=== PATIENT | female | born 1965 | race Caucasian/White ===

== ENCOUNTER → 2017-06-24 | Outpatient (CLI) | payer OTHER ==
--- NOTE | 2017-06-24 16:58 | BD ---
EXAMINATION TYPE: MG DEXA axial skeleton. DATE OF EXAM: 06/24/2017 COMPARISON: 01/04/2012 CLINICAL HISTORY: 51-year-old female osteoarthritis, postmenopausal screening Height: 65 IN Weight: 179 LBS FRAX RISK QUESTIONS: Alcohol (3 or more units per day): NO Family History (Parent hip fracture): NO Glucocorticoids (More than 3mos): NO (Ex: prednisone, prednisolone, methylprednisolone, dexamethasone, and hydrocortisone). History of Fracture in Adulthood: YES RT SHOULDER/CLAVICLE/HUMERUS FX Secondary Osteoporosis: 1. Type 1 Diabetes: NO 2. Hyperthyroidism: NO 3. Menopause before 45: YES AGE 43 4. Malnutrition: NO 5. Chronic liver disease: NO Rheumatoid Arthritis: NO Current Tobacco Use: YES RISK FACTORS HISTORY OF: History of Wrist Fracture: YES RT WRIST When: AGE 26 Surgery to Wrist (right): YES When: AGE 26 Active: YES Diet low in dairy products/other sources of calcium: YES Postmenopausal woman: AGE 43 Take estrogen and/or progesterone medications: NOT NOW How long: AGE 46-47 MEDICATIONS: Additional Medications: KLONOPIN, CELEXA, NORCO, CHOLESTEROL MEDS, NIACIN, EXAM MEASUREMENTS: Bone mineral densitometry was performed using the [employer] System. Bone mineral density as measured about the Lumbar spine is: ----- L1-L4(G/cm2): 1.221 T Score Values are as follows: ----- L2: 0.5 ----- L3: 0.9 ----- L4: 0.0 ----- L1-L4: 0.3 Bone mineral density has: Decreased -2.5% since study of: 01/04/2012 Bone mineral density about the R hip (g/cm2): 0.927 Bone mineral density about the L hip (g/cm2): 0.946 T Score values are as follows: -----R Neck: -0.8 -----L Neck: -0.7 -----R Total: -0.6 -----L Total: -0.4 Bone mineral density has: Decreased -5.9% since study of: 01/04/2012 IMPRESSION: Normal (Values between +1 and -1 indicate normal bone mass). Consider repeating this study in 5 year s or sooner if there is some new clinical indication. NOTE: T-SCORE=SD OF THE YOUNG ADULT MEAN.
--- NOTE | 2017-06-25 10:10 | MM ---
Reason for exam: screening (asymptomatic). Last mammogram was performed 5 years and 6 months ago. History: Patient is postmenopausal. Took estrogen for 1 year 1 month beginning at age 46. Took progesterone for 1 year 1 month beginning at age 46. Physical Findings: A clinical breast exam by your physician is recommended on an annual basis and results should be correlated with mammographic findings. MG Screening Mammo w CAD Bilateral CC and MLO view(s) were taken. Prior study comparison: January 04, 2012, bilateral digital screening mammo w/CAD. January 29, 2008, mammogram, performed at [facility]. There are scattered fibroglandular densities. There is no discrete abnormality. No significant changes when compared with prior studies. ASSESSMENT: Negative, BI-RAD 1 RECOMMENDATION: Routine screening mammogram of both breasts in 1 year.
== END | disposition home or self-care (01) ==
LOC: RADMAMWWP 14:04
PROVIDERS: ATTEND Family Medicine
DX: Z12.31 Encounter for screening mammogram for malignant neoplasm of breast (principal); M19.90 Unspecified osteoarthritis, unspecified site
CPT/HCPCS: 77080; G0202

== ENCOUNTER 2017-12-16 12:35 | Emergency (ER) | payer OTHER ==
[2017-12-16] MEDS ORDERED: SODIUM CHLORIDE 0.9% 1,000 ML IV STA ×2 (13:01)
[2017-12-16] MEDS ORDERED: MORPHINE SULFATE 5 MG/ML SYRINGE IV STA (13:01)
[2017-12-16] MEDS ORDERED: KETOROLAC 30 MG/ML 1 ML VIAL IVP STA (13:01)
[2017-12-16] MEDS ORDERED: diphenhydrAMINE 50 MG/ML 1 ML VIAL IVP STA (13:01)
[2017-12-16] MEDS ORDERED: ONDANSETRON 4 MG/2 ML VIAL IVP STA (13:01)
[2017-12-16] MEDS ORDERED: FAMOTIDINE 20 MG/2 ML VIAL IV STA (13:02)
[2017-12-16] MEDS ORDERED: methylPREDNISolone SOD SUCCI 125 MG/2 ML VIAL IV STA (13:02)
--- NOTE | 2017-12-16 13:05 | ED ---
Abdominal Pain HPI - General Chief Complaint: Abdominal Pain Stated Complaint: Abd Pain Time Seen by Provider: 12/16/17 12:48 Source: patient, family, RN notes reviewed, old records reviewed Mode of arrival: ambulatory Limitations: no limitations - History of Present Illness Initial Comments: This patient is a 32-year-old female chief complaint of severe left lower quadrant abdominal pain for the past 2 days. Patient reports that the pain started a few days prior to this but has not been that bad. She states that it started to come worse this morning when she woke up. She started to have episodes of dry heaves due to the pain. She states it's in her lower left pelvis. History of hysterectomy. She states that she has had chills but denies any fever. She reports the pain was so bad she had felt lightheaded. She reports no chest pain or shortness of breath or coughing. She reports that her father has had a history of ALLERGIC reaction to iodine. She states that she is concerned that she could possibly have this as well and wants to be premedicated. Patient reports that her pain seemed to feel somewhat better after she had a bowel movement this morning. - Related Data Home Medications Medication Instructions Recorded Confirmed Citalopram Hydrobromide [CeleXA] 20 mg PO PC-SUPPER 11/16/15 12/16/17 clonazePAM [KlonoPIN] 0.5 mg PO QID PRN 11/16/15 12/16/17 Cholecalciferol [Vitamin D3] 1,000 unit PO DAILY 12/16/17 12/16/17 Lysine 500 mg PO DAILY 12/16/17 12/16/17 Niacin 500 mg PO DAILY 12/16/17 12/16/17 Previous Rx's Medication Instructions Recorded Bisacodyl [Dulcolax] 10 mg PO ONCE #20 tablet. 12/16/17 Ciprofloxacin HCl [Cipro] 500 mg PO Q12HR 10 Days tab 12/16/17 HYDROcodone/APAP 5-325MG [[place] 1 tab PO Q6HR PRN #20 tab 12/16/17 5-325] Ondansetron Odt [Zofran Odt] 4 mg PO Q12HR PRN #15 tab 12/16/17 metroNIDAZOLE [Flagyl] 500 mg PO TID #30 tab 12/16/17 Allergies Allergy/AdvReac Type Severity Reaction Status Date / Time meperidine [From Demerol] Allergy Unknown Verified 12/16/17 12:57 Review of Systems ROS Statement: Those systems with pertinent positive or pertinent negative responses have been documented in the HPI. ROS Other: All systems not noted in ROS Statement are negative. Past Medical History Past Medical History: COPD, Osteoarthritis (OA) History of Any Multi-Drug Resistant Organisms: None Reported Past Surgical History: Breast Surgery, Hysterectomy, Orthopedic Surgery, Tonsillectomy Additional Past Surgical History / Comment(s): RIGHT WRIST, RIGHT FOOT, RIGHT BREAST, Past Anesthesia/Blood Transfusion Reactions: No Reported Reaction Past Psychological History: Anxiety, Depression Smoking Status: Current every day smoker Past Alcohol Use History: None Reported Past Drug Use History: None Reported - Past Family History Mother Family Medical History: No Reported History General Exam - General Exam Comments Initial Comments: This patient is a 82-year-old female. Alert and oriented. No distress. Limitations: no limitations General appearance: alert, in no apparent distress Head exam: Present: atraumatic, normocephalic, normal inspection Eye exam: Present: normal appearance, PERRL, EOMI. Absent: scleral icterus, conjunctival injection, periorbital swelling ENT exam: Present: normal exam, mucous membranes moist Neck exam: Present: normal inspection Respiratory exam: Present: normal lung sounds bilaterally. Absent: respiratory distress, wheezes, rales, rhonchi, stridor Cardiovascular Exam: Present: regular rate, normal rhythm, normal heart sounds. Absent: systolic murmur, diastolic murmur, rubs, gallop, clicks GI/Abdominal exam: Present: soft, tenderness (Severe left lower quadrant tenderness.), normal bowel sounds. Absent: distended, guarding, rebound, rigid Back exam: Present: normal inspection Neurological exam: Present: alert, oriented X3, CN II-XII intact Psychiatric exam: Present: normal affect, normal mood Course Vital Signs 12/16/17 12/16/17 12:39 13:52 Temperature 97.8 F Pulse Rate 110 H 87 Respiratory 20 18 Rate Blood Pressure 147/78 120/78 O2 Sat by Pulse 97 99 Oximetry - Reevaluation(s) Reevaluation #1: 12/16/17 15:02 Patient is reevaluated resting comfortably in bed. She reports her pain is feeling better at this time. Medical Decision Making - Medical Decision Making 52-year-old female chief complaint of left lower quadrant abdominal pain. She reports she ate corn a few days ago. She has significant tenderness noted on exam. Patient is given IV fluids labwork obtained. She does have mild leukocytosis. White blood cell count 12,000. Urinalysis shows no infection. Liver enzymes are normal. Patient underwent CT abdomen and pelvis due to her tenderness. She has evidence of diverticulitis. No evidence of abscess or perforation. Patient informed of these results. We'll give patient Cipro and yl in the emergency department. Discussed treating the pain medicine stool softeners as well. Clear liquid diet for the next few days. Discussion is follow-up with her primary care provider. Discussed return parameters and concerns for risk for perforation and abscess. Patient understands treatment plan will comply. Return parameters were discussed. - Lab Data Result diagrams: 12/16/17 13:16 12/16/17 13:16 Lab Results 12/16/17 12/16/17 12/16/17 Range/Units 13:16 13:16 13:16 WBC 12.0 H (3.8-10.6) k/uL RBC 4.70 (3.80-5.40) m/uL Hgb 14.1 (11.4-16.0) gm/dL Hct 40.0 (34.0-46.0) % MCV 85.2 (80.0-100.0) fL MCH 30.1 (25.0-35.0) pg MCHC 35.3 (31.0-37.0) g/dL RDW 13.6 (11.5-15.5) % Plt Count 250 (150-450) k/uL Neutrophils % 82 % Lymphocytes % 12 % Monocytes % 4 % Eosinophils % 1 % Basophils % 0 % Neutrophils # 9.8 H (1.3-7.7) k/uL Lymphocytes # 1.5 (1.0-4.8) k/uL Monocytes # 0.5 (0-1.0) k/uL Eosinophils # 0.1 (0-0.7) k/uL Basophils # 0.0 (0-0.2) k/uL Sodium 143 (137-145) mmol/L Potassium 4.2 (3.5-5.1) mmol/L Chloride 105 (98-107) mmol/L Carbon Dioxide 25 (22-30) mmol/L Anion Gap 13 mmol/L BUN 15 (7-17) mg/dL Creatinine 0.80 (0.52-1.04) mg/dL Est GFR (CKD-EPI)AfAm >90 (>60 ml/min/1.73 sqM) Est GFR (CKD-EPI)NonAf 85 (>60 ml/min/1.73 sqM) Glucose 109 H (74-99) mg/dL Plasma Lactic Acid Porfirio 0.6 L (0.7-2.0) mmol/L Calcium 9.7 (8.4-10.2) mg/dL Total Bilirubin 0.6 (0.2-1.3) mg/dL AST 16 (14-36) U/L ALT 25 (9-52) U/L Alkaline Phosphatase 79 (38-126) U/L Total Protein 6.8 (6.3-8.2) g/dL Albumin 4.2 (3.5-5.0) g/dL Amylase 50 (30-110) U/L Lipase 47 (23-300) U/L Urine Color Urine Appearance (Clear) Urine pH (5.0-8.0) Ur Specific [place] (1.001-1.035) Urine Protein (Negative) Urine Glucose (UA) (Negative) Urine Ketones (Negative) Urine Blood (Negative) Urine Nitrite (Negative) Urine Bilirubin (Negative) Urine Urobilinogen (<2.0) mg/dL Ur Leukocyte Esterase (Negative) Urine RBC (0-5) /hpf Urine WBC (0-5) /hpf Ur Squamous Epith Cells (0-4) /hpf Urine Bacteria (None) /hpf Urine Mucus (None) /hpf 12/16/17 Range/Units 13:53 WBC (3.8-10.6) k/uL RBC (3.80-5.40) m/uL Hgb (11.4-16.0) gm/dL Hct (34.0-46.0) % MCV (80.0-100.0) fL MCH (25.0-35.0) pg MCHC (31.0-37.0) g/dL RDW (11.5-15.5) % Plt Count (150-450) k/uL Neutrophils % % Lymphocytes % % Monocytes % % Eosinophils % % Basophils % % Neutrophils # (1.3-7.7) k/uL Lymphocytes # (1.0-4.8) k/uL Monocytes # (0-1.0) k/uL Eosinophils # (0-0.7) k/uL Basophils # (0-0.2) k/uL Sodium (137-145) mmol/L Potassium (3.5-5.1) mmol/L Chloride (98-107) mmol/L Carbon Dioxide (22-30) mmol/L Anion Gap mmol/L BUN (7-17) mg/dL Creatinine (0.52-1.04) mg/dL Est GFR (CKD-EPI)AfAm (>60 ml/min/1.73 sqM) Est GFR (CKD-EPI)NonAf (>60 ml/min/1.73 sqM) Glucose (74-99) mg/dL Plasma Lactic Acid Porfirio (0.7-2.0) mmol/L Calcium (8.4-10.2) mg/dL Total Bilirubin (0.2-1.3) mg/dL AST (14-36) U/L ALT (9-52) U/L Alkaline Phosphatase (38-126) U/L Total Protein (6.3-8.2) g/dL Albumin (3.5-5.0) g/dL Amylase (30-110) U/L Lipase (23-300) U/L Urine Color Yellow Urine Appearance Cloudy H (Clear) Urine pH 6.0 (5.0-8.0) Ur Specific [place] 1.018 (1.001-1.035) Urine Protein Negative (Negative) Urine Glucose (UA) Negative (Negative) Urine Ketones Negative (Negative) Urine Blood Trace H (Negative) Urine Nitrite Negative (Negative) Urine Bilirubin Negative (Negative) Urine Urobilinogen <2.0 (<2.0) mg/dL Ur Leukocyte Esterase Negative (Negative) Urine RBC 1 (0-5) /hpf Urine WBC 2 (0-5) /hpf Ur Squamous Epith Cells 10 H (0-4) /hpf Urine Bacteria Rare H (None) /hpf Urine Mucus Rare H (None) /hpf - Radiology Data Radiology results: report reviewed CT shows evidence of acute diverticulitis.No evidence of pericolonic abscess or free air. Cholelithiasis without CT evidence of acute cholecystitis. Disposition Clinical Impression: Diverticulitis Disposition: HOME SELF-CARE Condition: Good Instructions: Diverticulitis (ED), Diverticulitis Diet (ED) Additional Instructions: Liquid diet for the next few days. Patient should take all medications as prescribed. Return to emergency department if any alarming signs or symptoms occur. Follow-up with primary care provider within the next 2-3 days. Prescriptions: Bisacodyl [Dulcolax] 10 mg PO ONCE #20 tablet. Ciprofloxacin HCl [Cipro] 500 mg PO Q12HR 10 Days tab HYDROcodone/APAP 5-325MG [[place] 5-325] 1 tab PO Q6HR PRN #20 tab PRN Reason: Pain metroNIDAZOLE [Flagyl] 500 mg PO TID #30 tab Ondansetron Odt [Zofran Odt] 4 mg PO Q12HR PRN #15 tab PRN Reason: Nausea Referrals: Santos Odom DO [Primary Care Provider] - 1-2 days Time of Disposition: 15:03
[2017-12-16] MEDS ORDERED: MORPHINE SULF 5MG/10ML VL ONE (13:09)
[2017-12-16 13:39] LABS: Basophils % (A) 0 %; Eosinophils # (A) 0.1 k/uL (0-0.7); Eosinophils % (A) 1 %; HGB 14.1 gm/dL (11.4-16.0); Lymphocytes # (A) 1.5 k/uL (1.0-4.8); Lymphocytes % (A) 12 %; MCH 30.1 pg (25.0-35.0); MCHC 35.3 g/dL (31.0-37.0); MCV 85.2 fL (80.0-100.0); Mean Platelet Volume 7.5; Monocytes # (A) 0.5 k/uL (0-1.0); Monocytes % (A) 4 %; Neutrophils # (A) 9.8 k/uL (1.3-7.7); Neutrophils % (A) 82 %; Platelet Count 250 k/uL (150-450); RDW 13.6 % (11.5-15.5)
[2017-12-16 13:50] LABS: ALT 25 U/L (9-52); AST 16 U/L (14-36); Albumin 4.2 g/dL (3.5-5.0); Alkaline Phosphatase 79 U/L (38-126); Amylase 50 U/L (30-110); Anion Gap 13 mmol/L; Blood Urea Nitrogen 15 mg/dL (7-17); Calcium 9.7 mg/dL (8.4-10.2); Carbon Dioxide 25 mmol/L (22-30); Chloride 105 mmol/L (98-107); Glucose 109 mg/dL (74-99); Lipase 47 U/L (23-300); Potassium 4.2 mmol/L (3.5-5.1); Sodium 143 mmol/L (137-145); Total Bilirubin 0.6 mg/dL (0.2-1.3); Total Protein 6.8 g/dL (6.3-8.2)
[2017-12-16 13:54] VITALS: PULSE 87; RESP 18
[2017-12-16 14:14] LABS: Appearance,Urine Cloudy (Clear); Bacteria,Urine Rare /hpf; Bilirubin,Urine Negative (Negative); Blood,Urine Trace (Negative); Color,Urine Yellow; Glucose,Urine (UA) Negative (Negative); Ketones,Urine Negative (Negative); Leukocyte Esterase,Urine Negative (Negative); Mucus,Urine Rare /hpf; Nitrite,Urine Negative (Negative); Protein,Urine Negative (Negative); RBC,Urine 1 /hpf (0-5); Specific Gravity,Urine 1.018 (1.001-1.035); Squamous Epithelial Cell,Urine 10 /hpf (0-4); Urobilinogen,Urine <2.0 mg/dL (<2.0); WBC,Urine 2 /hpf (0-5)
[2017-12-16] MEDS: RX INFO: IV CONTRAST WAS GIVEN 1 EACH MISC MISCELLANE PRN ×2 (14:23→14:24)
--- NOTE | 2017-12-16 14:38 | CT ---
EXAMINATION TYPE: CT abdomen pelvis w con DATE OF EXAM: 12/16/2017 HISTORY: Left lower abdominal pain CT DLP: 1490mGycm Automated Exposure Control for Dose Reduction was Utilized. CONTRAST: CT scan of the abdomen and pelvis is performed with IV Contrast, patient injected with 100 mL of Isov ue 300. COMPARISON: None. FINDINGS: LUNG BASES: Bibasilar subsegmental dependent atelectasis is present. Right middle lobe subsegmental a telectasis is also seen. LIVER/GB: Focal wedge-shaped hypoattenuation seen near the falciform ligament most commonly relates t o focal fatty infiltration. Additional 8 mm hepatic cyst is present within segment 6. Multiple lamell ated choleliths layer within the gallbladder body and neck. No common bile duct dilatation is appreci ated. PANCREAS: No ductal dilatation. SPLEEN: No splenomegaly. ADRENALS: No significant abnormality is seen. KIDNEYS: Kidneys enhance and excrete symmetrically. BOWEL: Short segment pericolonic fat stranding surrounds the sigmoid colon and numerous diverticula w ith fascial plane thickening. No evidence of free air or focal fluid collection. No proximal obstruct ion. Appendix is air-filled and within normal limits. UTERUS/ADNEXA: Uterus appears surgically absent. LYMPH NODES: No greater than 1cm abdominal or pelvic lymph nodes are appreciated. OSSEOUS STRUCTURES: Osseous structures are grossly intact with minimal multilevel degenerative change s of visualized on the lumbar spine. OTHER: Subcentimeter fat filled umbilical hernia is noted. IMPRESSION: 1. Acute uncomplicated sigmoid diverticulitis without pericolonic abscess or free air. 2. Cholelithiasis without CT evidence of acute cholecystitis.
[2017-12-16] MEDS ORDERED: CIPROFLOXACIN HCL 500 MG TAB PO STA (15:01)
[2017-12-16] MEDS ORDERED: metroNIDAZOLE 500 MG TAB PO STA (15:01)
[2017-12-16 15:29] VITALS: BP 135/87; TEMP 98.4
== END 2017-12-16 15:29 | disposition home or self-care (01) ==
LOC: EC 12:35
DX: K57.32 Diverticulitis of large intestine without perforation or abscess without bleeding (principal); F41.9 Anxiety disorder, unspecified; F32.9 Major depressive disorder, single episode, unspecified; F17.200 Nicotine dependence, unspecified, uncomplicated; Z90.710 Acquired absence of both cervix and uterus; Z79.899 Other long term (current) drug therapy; Z88.5 Allergy status to narcotic agent
CPT/HCPCS: 36415; 80053; 82150; 83605; 83690; 85025; 81001; 87040; 74177; 99285; 96374; 96375 ×5; 96361 ×2; J1200; J2930; J2405; J1885; J2274; Q9967; J2270

== ENCOUNTER 2018-07-28 13:12 | Emergency (ER) | payer OTHER ==
[2018-07-28 13:52] VITALS: RESP 18
[2018-07-28 14:41] LABS: Basophils % (A) 0 %; Eosinophils # (A) 0.1 k/uL (0-0.7); Eosinophils % (A) 1 %; HCT 44.8 % (34.0-46.0); HGB 15.3 gm/dL (11.4-16.0); Lymphocytes # (A) 2.3 k/uL (1.0-4.8); Lymphocytes % (A) 22 %; MCH 30.8 pg (25.0-35.0); MCHC 34.3 g/dL (31.0-37.0); MCV 89.9 fL (80.0-100.0); Mean Platelet Volume 7.8; Monocytes # (A) 0.4 k/uL (0-1.0); Monocytes % (A) 4 %; Neutrophils # (A) 7.3 k/uL (1.3-7.7); Neutrophils % (A) 71 %; Platelet Count 232 k/uL (150-450); RBC 4.98 m/uL (3.80-5.40); RDW 13.3 % (11.5-15.5); WBC 10.3 k/uL (3.8-10.6)
[2018-07-28] MEDS ORDERED: ONDANSETRON 4 MG/2 ML VIAL IVP STA (14:54)
[2018-07-28] MEDS ORDERED: MORPHINE SULFATE 4 MG/ML SYRINGE IV STA (14:54)
--- NOTE | 2018-07-28 14:56 | ED ---
General Adult HPI - General Chief complaint: Abdominal Pain Stated complaint: abd pain Time Seen by Provider: 07/28/18 14:36 Source: patient, RN notes reviewed Mode of arrival: ambulatory Limitations: no limitations - History of Present Illness Initial comments: Patient is a 52-year-old female presented to the emergency room today with a chief complaint of left lower quadrant pain that began 3 days ago. She does admit that it's increased last few days. Admits to history of diverticulitis and states feels similar. Patient admits to nausea. Denies any other complaints or symptoms at this time. Patient denies any recent fever, chills, shortness of breath, chest pain, back pain, numbness or tingling, dysuria or hematuria, constipation or diarrhea, headaches or visual changes, or any other complaints. - Related Data Home Medications Medication Instructions Recorded Confirmed Citalopram Hydrobromide [CeleXA] 20 mg PO PC-SUPPER 11/16/15 12/16/17 clonazePAM [KlonoPIN] 0.5 mg PO QID PRN 11/16/15 12/16/17 Cholecalciferol [Vitamin D3] 1,000 unit PO DAILY 12/16/17 12/16/17 Lysine 500 mg PO DAILY 12/16/17 12/16/17 Niacin 500 mg PO DAILY 12/16/17 12/16/17 Previous Rx's Medication Instructions Recorded Bisacodyl [Dulcolax] 10 mg PO ONCE #20 tablet. 12/16/17 Ciprofloxacin HCl [Cipro] 500 mg PO Q12HR 10 Days tab 12/16/17 HYDROcodone/APAP 5-325MG [[place] 1 tab PO Q6HR PRN #20 tab 12/16/17 5-325] Ondansetron Odt [Zofran Odt] 4 mg PO Q12HR PRN #15 tab 12/16/17 metroNIDAZOLE [Flagyl] 500 mg PO TID #30 tab 12/16/17 Ciprofloxacin HCl [Cipro] 500 mg PO Q12HR #20 day 07/28/18 metroNIDAZOLE [Flagyl] 500 mg PO TID #30 tab 07/28/18 Allergies Allergy/AdvReac Type Severity Reaction Status Date / Time meperidine [From Demerol] Allergy Unknown Verified 07/28/18 13:53 Review of Systems ROS Statement: Those systems with pertinent positive or pertinent negative responses have been documented in the HPI. ROS Other: All systems not noted in ROS Statement are negative. Past Medical History Past Medical History: COPD, Osteoarthritis (OA) History of Any Multi-Drug Resistant Organisms: None Reported Past Surgical History: Breast Surgery, Hysterectomy, Orthopedic Surgery, Tonsillectomy Additional Past Surgical History / Comment(s): RIGHT WRIST, RIGHT FOOT, RIGHT BREAST, Past Anesthesia/Blood Transfusion Reactions: No Reported Reaction Past Psychological History: Anxiety, Depression Smoking Status: Current every day smoker Past Alcohol Use History: None Reported Past Drug Use History: None Reported - Past Family History Mother Family Medical History: No Reported History General Exam - General Exam Comments Initial Comments: General: The patient is awake and alert, in no distress, and does not appear acutely ill. Eye: Pupils are equal, round and reactive to light. Extra-ocular movements are intact. No nystagmus. There is normal conjunctiva bilaterally. No signs of icterus. Ears, nose, mouth and throat: There are moist mucous membranes and no oral lesions. Neck: The neck is supple, there is no tenderness or JVD. Cardiovascular: There is a regular rate and rhythm. No murmur, rub or gallop is appreciated. Respiratory: Lungs are clear to auscultation, respirations are non-labored, breath sounds are equal. No wheezes, stridor, rales, or rhonchi. Gastrointestinal: Soft on palpation per patient does have tenderness left lower quadrant on exam. No rebound, guarding or CVA tenderness. Musculoskeletal: Normal ROM, no tenderness. Sensation intact. Strength 5/5. Pulses equal bilaterally 2+. Neurological: A&O x 3. CN II-XII intact, There are no obvious motor or sensory deficits. Coordination appears grossly intact. Speech is normal. Skin: Skin is warm and dry and no rashes or lesions are noted. Psychiatric: Cooperative, appropriate mood & affect, normal judgment. Limitations: no limitations Course Vital Signs 07/28/18 07/28/18 13:50 14:46 Temperature 98.1 F Pulse Rate 101 H 84 Respiratory 18 18 Rate Blood Pressure 126/84 135/78 O2 Sat by Pulse 97 98 Oximetry Medical Decision Making - Medical Decision Making Patient's CT reviewed and does show evidence for sigmoid diverticulitis. Patient's last been reviewed are unremarkable. Patient has no elevated white count. No fever. Vitals are stable. Abdomen soft on palpation. Patient feels comfortable with being discharged for outpatient treatment. Patient is advised follow-up the family doctor next 2 days. Will be started on Cipro, Flagyl here in the emergency room. Is advised to return if symptoms increase worsen. - Lab Data Result diagrams: 07/28/18 14:17 07/28/18 14:17 Lab Results 07/28/18 07/28/18 07/28/18 Range/Units 14:17 14:17 14:50 WBC 10.3 (3.8-10.6) k/uL RBC 4.98 (3.80-5.40) m/uL Hgb 15.3 (11.4-16.0) gm/dL Hct 44.8 (34.0-46.0) % MCV 89.9 (80.0-100.0) fL MCH 30.8 (25.0-35.0) pg MCHC 34.3 (31.0-37.0) g/dL RDW 13.3 (11.5-15.5) % Plt Count 232 (150-450) k/uL Neutrophils % 71 % Lymphocytes % 22 % Monocytes % 4 % Eosinophils % 1 % Basophils % 0 % Neutrophils # 7.3 (1.3-7.7) k/uL Lymphocytes # 2.3 (1.0-4.8) k/uL Monocytes # 0.4 (0-1.0) k/uL Eosinophils # 0.1 (0-0.7) k/uL Basophils # 0.0 (0-0.2) k/uL Sodium 141 (137-145) mmol/L Potassium 4.9 (3.5-5.1) mmol/L Chloride 104 (98-107) mmol/L Carbon Dioxide 27 (22-30) mmol/L Anion Gap 10 mmol/L BUN 11 (7-17) mg/dL Creatinine 0.75 (0.52-1.04) mg/dL Est GFR (CKD-EPI)AfAm >90 (>60 ml/min/1.73 sqM) Est GFR (CKD-EPI)NonAf >90 (>60 ml/min/1.73 sqM) Glucose 89 (74-99) mg/dL Calcium 10.0 (8.4-10.2) mg/dL Total Bilirubin 0.7 (0.2-1.3) mg/dL AST 20 (14-36) U/L ALT 25 (9-52) U/L Alkaline Phosphatase 79 (38-126) U/L Total Protein 8.0 (6.3-8.2) g/dL Albumin 4.9 (3.5-5.0) g/dL Amylase 63 (30-110) U/L Lipase 62 (23-300) U/L Urine Color Yellow Urine Appearance Clear (Clear) Urine pH 5.0 (5.0-8.0) Ur Specific [place] 1.013 (1.001-1.035) Urine Protein Negative (Negative) Urine Glucose (UA) Negative (Negative) Urine Ketones Negative (Negative) Urine Blood Trace H (Negative) Urine Nitrite Negative (Negative) Urine Bilirubin Negative (Negative) Urine Urobilinogen <2.0 (<2.0) mg/dL Ur Leukocyte Esterase Negative (Negative) Urine RBC 2 (0-5) /hpf Urine WBC 1 (0-5) /hpf Ur Squamous Epith Cells 1 (0-4) /hpf Urine Bacteria Rare H (None) /hpf Urine Mucus Rare H (None) /hpf Disposition Clinical Impression: Sigmoid diverticulitis Disposition: HOME SELF-CARE Condition: Good Instructions: Diverticulitis (ED) Additional Instructions: Please use medication as discussed. Please follow-up with family doctor in the next 2 days. Please return to emergency room if the symptoms increase or worsen or for any other concerns. Prescriptions: Ciprofloxacin HCl [Cipro] 500 mg PO Q12HR #20 day metroNIDAZOLE [Flagyl] 500 mg PO TID #30 tab Is patient prescribed a controlled substance at d/c from ED?: No Referrals: Santos Odom DO [Primary Care Provider] - 1-2 days Time of Disposition: 16:20
[2018-07-28 14:59] LABS: ALT 25 U/L (9-52); AST 20 U/L (14-36); Albumin 4.9 g/dL (3.5-5.0); Alkaline Phosphatase 79 U/L (38-126); Amylase 63 U/L (30-110); Anion Gap 10 mmol/L; Blood Urea Nitrogen 11 mg/dL (7-17); Carbon Dioxide 27 mmol/L (22-30); Chloride 104 mmol/L (98-107); Glucose 89 mg/dL (74-99); Lipase 62 U/L (23-300); Potassium 4.9 mmol/L (3.5-5.1); Sodium 141 mmol/L (137-145); Total Bilirubin 0.7 mg/dL (0.2-1.3)
--- NOTE | 2018-07-28 15:00 | XR ---
Abdomen HISTORY: Abdominal pain, left lower quadrant pain Frontal view of the abdomen submitted on 2 images Correlated to prior CT abdomen pelvis 12/16/2017 Lung bases are clear. There is no evident pneumoperitoneum or bowel obstruction. Degenerative disc ch anges are present in the visualized spine. Multiple calcifications are present within the pelvis like ly representing phleboliths. IMPRESSION: Nonobstructive bowel gas pattern.
[2018-07-28] MEDS ORDERED: diphenhydrAMINE 50 MG CAP PO STA (15:11)
[2018-07-28 15:12] LABS: Appearance,Urine Clear (Clear); Bacteria,Urine Rare /hpf; Bilirubin,Urine Negative (Negative); Blood,Urine Trace (Negative); Color,Urine Yellow; Glucose,Urine (UA) Negative (Negative); Ketones,Urine Negative (Negative); Leukocyte Esterase,Urine Negative (Negative); Mucus,Urine Rare /hpf; Nitrite,Urine Negative (Negative); Protein,Urine Negative (Negative); RBC,Urine 2 /hpf (0-5); Specific Gravity,Urine 1.013 (1.001-1.035); Squamous Epithelial Cell,Urine 1 /hpf (0-4); Urobilinogen,Urine <2.0 mg/dL (<2.0); WBC,Urine 1 /hpf (0-5)
--- NOTE | 2018-07-28 15:55 | CT ---
EXAMINATION TYPE: CT abdomen pelvis w con DATE OF EXAM: 07/28/2018 COMPARISON: 12/16/2017 INDICATION: LLQ pain, nausea DLP: 857 mGycm, Automated exposure control for dose reduction was used. CONTRAST: 100 mL of Isovue 300. Study performed without Oral Contrast TECHNIQUE: Axial images were obtained from above the diaphragm to the pubic rami in the axial plane a t 5 mm thick sections. Reconstructed images are reviewed on the computer in the coronal plane. FINDINGS: Limited CT sections are obtained the lung bases. The lung bases are clear. Very small hiatal hernia may be present. CT ABDOMEN: Liver: There is a 0.7 cm cyst measuring 14 Hounsfield units in the posterior right tip of the liver. Spleen: Normal Pancreas: Normal. Loop of bowel is pushing the mid body the pancreas upwards. Adrenal glands: The adrenal glands are normal. Gallbladder: Gallstones are present. Kidneys: No masses are evident. No hydronephrosis is present. No cysts are present. Delayed images were obtained through the kidneys, which remain unremarkable. Aorta: Vascular calcification is within the aorta. Inferior vena cava: Normal. CT PELVIS: Inflammatory changes are adjacent to the distal descending colon proximal sigmoid colon. Scattered di verticuli are within this region. Findings are compatible with acute diverticulitis. No abscess forma tion is evident. No free air is evident. Additional loops of bowel appear unremarkable. Appendix: Normal as visualized. Urinary bladder: Normal. Genitourinary structures: Uterus and ovaries are not identified. Osseous structures: No suspicious lytic or sclerotic lesions. IMPRESSIONS: 1. Acute proximal sigmoid diverticulitis. No underlying abscess formation or free air is evident thi s time.
[2018-07-28 16:37] VITALS: BP 137/90; PULSE 71; TEMP 98
== END 2018-07-28 16:32 | disposition home or self-care (01) ==
LOC: EC 13:12
DX: K57.32 Diverticulitis of large intestine without perforation or abscess without bleeding (principal); F32.9 Major depressive disorder, single episode, unspecified; F17.200 Nicotine dependence, unspecified, uncomplicated; Z79.899 Other long term (current) drug therapy; Z88.5 Allergy status to narcotic agent
CPT/HCPCS: 36415; 80053; 82150; 83690; 85025; 81001; 74018; 74177; 99284; 96374; 96375; J2270; J2405; Q9967

== ENCOUNTER → 2018-12-25 | Outpatient (CLI) | payer OTHER ==
--- NOTE | 2018-12-25 15:35 | CT ---
EXAMINATION TYPE: CT abdomen pelvis wo con DATE OF EXAM: 12/25/2018 COMPARISON: 07/28/2018 INDICATION: Generalized pain with cramping and bowel changes DLP: 742.9 mGycm, Automated exposure control for dose reduction was used. CONTRAST: 0 mL of Isovue 300. Study performed with Oral Contrast TECHNIQUE: Axial images were obtained from above the diaphragm to the pubic rami in the axial plane a t 5 mm thick sections. Reconstructed images are reviewed on the computer in the coronal plane. FINDINGS: Limited CT sections are obtained the lung bases. The lung bases are clear. CT ABDOMEN: Liver: There is an ill-defined hypodensity measuring approximately 1.3 cm at the inferior right lobe liver somewhat posteriorly. This is not a typical cyst. Consider follow-up. Spleen: Normal Pancreas: Normal Adrenal glands: Small nodules on the posterior limb of the left adrenal gland measuring 0.9 cm transv erse dimension. Right adrenal gland is normal. Gallbladder: Multiple gallstones are present. Kidneys: No masses are evident. No hydronephrosis is present. No cysts are present. No renal stone s are evident. Aorta: Vascular calcification is within the aorta. Inferior vena cava: Normal. CT PELVIS: Loops of bowel within the abdomen and pelvis are normal. There are loops of bowel which are incom pletely distended or lack oral contrast limiting their evaluation. Multiple diverticuli are within th e sigmoid colon. No acute diverticulitis is evident. Previous diverticulitis changes have resolved. Appendix: Normal as visualized. Urinary bladder: Normal. Genitourinary structures: Uterus is absent. Adnexal regions are clear. Osseous structures: No suspicious lytic or sclerotic lesions. IMPRESSIONS: 1. Cholelithiasis. 2. Very small nodular density may be in the left adrenal gland. This could be followed. 3. Ill-defined hypodensity measuring approximately 1.3 cm inferior posterior right lobe liver is of u ncertain etiology. Consider correlation with ultrasound. This area more simple appearance on the prio r examination.
== END ==
LOC: RADCTMAIN 12:07
PROVIDERS: ATTEND Family Medicine
DX: K80.20 Calculus of gallbladder without cholecystitis without obstruction (principal)
CPT/HCPCS: 74176

== ENCOUNTER → 2019-01-22 | Outpatient (CLI) | payer OTHER ==
--- NOTE | 2019-01-22 10:01 | US ---
EXAMINATION TYPE: US liver DATE OF EXAM: 01/22/2019 COMPARISON: 12/25/2018 CLINICAL HISTORY: 53-year-old female R10 ABD PAIN. TECHNIQUE: Multiple sonographic images of the right upper quadrant were obtained. FINDINGS: EXAM MEASUREMENTS: Liver Length: 15.5 cm Gallbladder Wall: 0.2 cm CBD: 0.4 cm Right Kidney: 10.2 x 4.0 x 4.6 cm Pancreas: The pancreatic tail is obscured by bowel gas shadowing. Visualized head and body show no g ross abnormal body. Liver: wnl Gallbladder: multiple mobile stones with shadowing. No abnormal gallbladder distention, wall thicken ing, or surrounding fluid. Evidence for sonographic Bolton's sign: Yes CBD: wnl Right Kidney: No hydronephrosis. IMPRESSION: 1. Cholelithiasis. No ancillary imaging findings of acute cholecystitis. However, sonographic Bolton' s sign is noted to be positive. If concern for early acute cholelithiasis, consider HIDA scan. 2. No biliary ductal dilatation.
== END | disposition home or self-care (01) ==
LOC: RADUSWWP 06:47
PROVIDERS: ATTEND Family Medicine
DX: K80.20 Calculus of gallbladder without cholecystitis without obstruction (principal)
CPT/HCPCS: 76705

== ENCOUNTER → 2019-04-21 | Outpatient (CLI) | payer OTHER ==
[2019-04-21 19:28] LABS: Gliadin AB IgA, Unit 9.2 U/mL
== END | disposition home or self-care (01) ==
LOC: LABWHC1 12:49
PROVIDERS: ATTEND Internal Medicine Gastroenterology
DX: K90.0 Celiac disease (principal)
CPT/HCPCS: 36415; 83516

== ENCOUNTER → 2019-07-14 | Outpatient (CLI) | payer OTHER ==
--- NOTE | 2019-07-15 11:55 | CT ---
EXAMINATION TYPE: CT abdomen pelvis wo/w con DATE OF EXAM: 07/14/2019 COMPARISON: 12/25/2018 INDICATION: abdominal pain and bloating DLP: 2191 mGycm, Automated exposure control for dose reduction was used. CONTRAST: 100 mL of Isovue 300. Study performed with Oral Contrast TECHNIQUE: Axial images were obtained from above the diaphragm to the pubic rami in the axial plane a t 5 mm thick sections. Reconstructed images are reviewed on the computer in the coronal plane. FINDINGS: Limited CT sections are obtained the lung bases. The lung bases are clear. CT ABDOMEN: Liver: It is a 0.8 cm cyst measuring 10 Hounsfield units in the inferior lateral right lobe liver. Spleen: Normal Pancreas: Normal Adrenal glands: The adrenal glands are normal. Gallbladder: Absent Kidneys: No masses are evident. No hydronephrosis is present. No cysts are present. No renal stone s are evident. Aorta: Vascular calcification is within the aorta. Inferior vena cava: Normal. CT PELVIS: Loops of bowel within the abdomen and pelvis are normal. There are loops of bowel which are incom pletely distended or lack oral contrast limiting their evaluation. Scattered diverticuli within the c olon. No suspicious inflammatory changes to suggest acute diverticulitis is evident. Appendix: Normal as visualized. Urinary bladder: Normal. Genitourinary structures: Uterus is not identified. Adnexal regions appear within normal limits. No f ree fluid in the pelvis. Osseous structures: No suspicious lytic or sclerotic lesions. IMPRESSIONS: 1. Diverticulosis without acute diverticulitis.
== END ==
LOC: RADCTMAIN 16:13
PROVIDERS: ATTEND Family Medicine
DX: R10.11 Right upper quadrant pain (principal); R14.0 Abdominal distension (gaseous); K57.90 Diverticulosis of intestine, part unspecified, without perforation or abscess without bleeding
CPT/HCPCS: 74178; Q9967

== ENCOUNTER → 2021-04-17 | Outpatient (CLI) | payer OTHER ==
--- NOTE | 2021-04-17 18:25 | XR ---
EXAMINATION TYPE: XR chest 2V DATE OF EXAM: 04/17/2021 COMPARISON: 01/04/2012 HISTORY: 55-year-old female shortness of breath. J44.9 F17.210 TECHNIQUE: Frontal and lateral views FINDINGS: The cardiomediastinal silhouette, aorta, and pulmonary vasculature are within normal limits. Mild int erstitial prominence has a chronic appearance. Some strandy atelectasis at the left base. Hyperinflat ion. Small Bochdalek hernia posterior left base on the lateral view. No consolidation or pleural effu sheyla. Partially visualized plate and screw fixation proximal right humerus. IMPRESSION: COPD. No acute process seen.
== END | disposition home or self-care (01) ==
LOC: RADXRMAIN 14:01
PROVIDERS: ATTEND Family Medicine
DX: J44.9 Chronic obstructive pulmonary disease, unspecified (principal)
CPT/HCPCS: 71046

== ENCOUNTER → 2022-08-02 | Outpatient (CLI) | payer OTHER ==
--- NOTE | 2022-08-02 20:03 | MR ---
EXAMINATION TYPE: MR shoulder RT wo con DATE OF EXAM: 08/02/2022 COMPARISON: None. HISTORY: Right shoulder pain, history of 2 shoulder surgeries TECHNIQUE: Multiplanar, multisequence imaging of the right shoulder is performed without contrast. FINDINGS: Extensive susceptibility artifact from metallic hardware in the right humerus makes evaluation subopt imal. No significant glenohumeral joint effusion. There is suspected resection of the distal clavicle . Rotator cuff muscle bulk is preserved. IMPRESSION: As above.
== END | disposition home or self-care (01) ==
LOC: RADMRIMAIN 14:30
PROVIDERS: ATTEND Orthopaedic Surgery Adult Reconstructive Orthopaedic Surgery
DX: M75.101 Unspecified rotator cuff tear or rupture of right shoulder, not specified as traumatic (principal)

== ENCOUNTER → 2022-10-05 | Outpatient (CLI) | payer OTHER ==
--- NOTE | 2022-10-05 13:27 | CT ---
EXAMINATION TYPE: CT shoulder RT wo/w con DATE OF EXAM: 10/05/2022 COMPARISON: 11/08/2014. MRI 08/02/2022 HISTORY: 57-year-old female M24.811 Other specified joint derangements of RT shoulder, patient compla ining of pain with lifting and rotating arm. TECHNIQUE: Contiguous axial scanning of the right shoulder performed without and with IV Contrast, pa tient injected with 70 mL of Isovue 300. Coronal/sagittal reconstructions performed. 3-D reconstructi ons generated on a dedicated independent workstation. CT DLP: 992.40 mGycm Automated exposure control for dose reduction was used. FINDINGS: Lateral plate and screw fixation across the previous comminuted proximal humeral fracture. Healing ap pears complete. Hardware shows no evident complication. There is 3 mm of step-off along the anterior to mid greater tuberosity corresponding to previous mild ly displaced fracture margin. There is some degenerative spurring along the anterior aspect of the gl enohumeral joint but overall joint space appears maintained. Slight bony contour defect along the ant erior humeral head articular surface probably due to additional healed fracture margin, axial series 28 image 35. Some possible foreshortening of the distal clavicle may reflect postsurgical change. Preserved volume of the supraspinatus and infraspinatus tendons. No atrophy of the rotator cuff muscu lature. No brent distention of the subacromial/subdeltoid bursa appreciated. Moderate to advanced underlying emphysematous changes in the visualized right hemithorax. No acute fracture, subluxation, dislocation seen. IMPRESSION: 1. LATERAL PLATE AND SCREW FIXATION ACROSS THE PREVIOUS COMMINUTED PROXIMAL HUMERAL FRACTURE. HEALING APPEARS COMPLETE. HARDWARE SHOWS NO EVIDENT COMPLICATION. 2. A 3 MM OF STEP-OFF ALONG THE ANTERIOR TO MID GREATER TUBEROSITY CORRESPONDING TO PREVIOUS MILDLY D ISPLACED FRACTURE MARGIN. CORRELATE TO IF THIS COULD POTENTIALLY BE CATCHING ON THE ACROMION DURIN G ABDUCTION. SIMILARLY, THERE IS CONTOUR IRREGULARITY ALONG THE FAR ANTERIOR HUMERAL HEAD ARTICULAR S URFACE SUGGESTING A HEALED FRACTURE MARGIN. 3. THERE IS UNDERLYING MILD OSTEOARTHRITIC CHANGE . 4. QUERY POSTSURGICAL CHANGE/BONE SHAVING TO THE DISTAL CLAVICLE.
== END | disposition home or self-care (01) ==
LOC: RADCTMAIN 08:53
PROVIDERS: ATTEND Family Medicine
DX: S42.201D Unspecified fracture of upper end of right humerus, subsequent encounter for fracture with routine healing (principal); M24.811 Other specific joint derangements of right shoulder, not elsewhere classified; M19.011 Primary osteoarthritis, right shoulder
CPT/HCPCS: 73202; Q9967

== ENCOUNTER → 2022-12-14 | Outpatient (CLI) | payer OTHER ==
--- NOTE | 2022-12-14 14:05 | XR ---
EXAMINATION TYPE: XR toes RT DATE OF EXAM: 12/14/2022 COMPARISON: NONE HISTORY: Cut injury with pain and swelling. TECHNIQUE: 3 views right first toe. FINDINGS: There is soft tissue foreign body or glass fragment seen best on oblique and lateral view m easuring 7 x 4 mm in the dorsal deep soft tissue overlying the proximal to mid diaphysis of the first proximal phalanx. No acute displaced fracture is seen. There is mild narrowing and spurring at the f irst metatarsal-phalangeal joint. IMPRESSION: As above.
== END | disposition home or self-care (01) ==
LOC: RADXRMAIN 13:22
PROVIDERS: ATTEND Family Medicine
DX: M25.871 Other specified joint disorders, right ankle and foot (principal); M25.774 Osteophyte, right foot

== ENCOUNTER 2024-06-14 09:53 | Emergency (ER) | payer MEDICARE, OTHER ==
[2024-06-14 10:01] VITALS: RESP 18
[2024-06-14] MEDS: ONDANSETRON 4 MG/2 ML VIAL IVP STA (10:59)
[2024-06-14] MEDS: SODIUM CHLORIDE 0.9% 1,000 ML IV STA (10:59)
[2024-06-14] MEDS: KETOROLAC 15 MG/ML 1 ML VIAL IVP STA (10:59)
--- NOTE | 2024-06-14 11:02 | ED ---
Abdominal Pain HPI - General Chief Complaint: Abdominal Pain Stated Complaint: Infection in intestine Time Seen by Provider: 06/14/24 11:02 Source: patient, RN notes reviewed Mode of arrival: ambulatory Limitations: no limitations - History of Present Illness Initial Comments: 58 year old female presenting to the ER with a chief complaint of abdominal pa in. Patient states yesterday she started to experience a sharp left lower quadrant abdominal pain. Pain does not radiate. She does report a history of diverticulitis and states this feels similar. She is endorsing associated nausea denies vomiting. She has not taken anything for pain at this time. Denies diarrhea/constipation, fevers, chills or urinary complaints. - Related Data Home Medications Medication Instructions Recorded Confirmed Citalopram Hydrobromide [CeleXA] 20 mg PO PC-SUPPER 11/16/15 04/27/22 Previous Rx's Medication Instructions Recorded Amoxic-Pot Clav 875-125Mg 1 tab PO Q12HR #20 tab 06/14/24 [Augmentin 875-125] Allergies Allergy/AdvReac Type Severity Reaction Status Date / Time acetaminophen Allergy Unknown Verified 06/14/24 10:01 [From Darvocet-N] meperidine [From Demerol] Allergy Unknown Verified 06/14/24 10:01 propoxyphene Allergy Unknown Verified 06/14/24 10:01 [From Darvocet-N] IV contrast Allergy Anaphylaxis Uncoded 06/14/24 10:01 Review of Systems ROS Statement: Those systems with pertinent positive or pertinent negative responses have been documented in the HPI. ROS Other: All systems not noted in ROS Statement are negative. Past Medical History Past Medical History: COPD, Osteoarthritis (OA) Additional Past Medical History / Comment(s): Diverticulitis, History of Any Multi-Drug Resistant Organisms: None Reported Past Surgical History: Breast Surgery, Hysterectomy, Orthopedic Surgery, Tonsillectomy Additional Past Surgical History / Comment(s): RIGHT WRIST, RIGHT FOOT, RIGHT BREAST, Past Anesthesia/Blood Transfusion Reactions: No Reported Reaction Past Psychological History: Anxiety, Depression Smoking Status: Current every day smoker Past Alcohol Use History: None Reported Past Drug Use History: None Reported - Past Family History Mother Family Medical History: No Reported History General Exam Limitations: no limitations General appearance: alert, in no apparent distress Respiratory exam: Present: normal lung sounds bilaterally. Absent: respiratory distress, wheezes, rales, rhonchi, stridor Cardiovascular Exam: Present: regular rate, normal rhythm, normal heart sounds. Absent: systolic murmur, diastolic murmur, rubs, gallop, clicks GI/Abdominal exam: Present: soft, tenderness (Left lower quadrant), normal bowel sounds Extremities exam: Present: normal inspection, full ROM, normal capillary refill. Absent: tenderness, pedal edema, joint swelling, calf tenderness Neurological exam: Present: alert, oriented X3, CN II-XII intact Skin exam: Present: warm, dry, intact, normal color. Absent: rash Course Vital Signs 06/14/24 09:57 Temperature 97.8 F Pulse Rate 96 Respiratory 18 Rate Blood Pressure 153/79 O2 Sat by Pulse 98 Oximetry Medical Decision Making - Medical Decision Making Was pt. sent in by a medical professional or institution (, PA, [employer], urgent care, hospital, or fdc...) When possible be specific @ -No Did you speak to anyone other than the patient for history (EMS, parent, family, police, friend...)? What history was obtained from this source @ -No Did you review nursing and triage notes (agree or disagree)? Why? @ -I reviewed and agree with nursing and triage notes Were old charts reviewed (outside hosp., previous admission, EMS record, old EKG, old radiological studies, urgent care reports/EKG's, fdc records)? Report findings @ -No old charts were reviewed Differential Diagnosis (chest pain, altered mental status, abdominal pain women, abdominal pain men, vaginal bleeding, weakness, fever, dyspnea, syncope, he adache, dizziness, GI bleed, back pain, seizure, CVA, palpatations, mental health, musculoskeletal)? @ -Differential Abdominal Pain Women:Appendicitis, Cholecystitis, diverticulosis, ischemic bowel, pancreatitis, hepatitis, UTI, gastroenteritis, AAA, incarcerated hernia, bowel obstruction, constipation, inflammatory bowel, hepatitis, peptic ulcer disease, splenic infarction, perforated viscus, v ulvitis, ovarian torsion, PID, kidney stone, placenta abruption, this is not meant to be an all-inclusive list EKG interpreted by me (3pts min.). @ -None done X-rays interpreted by me (1pt min.). @ -None done CT interpreted by me (1pt min.). @ -CT abdomen pelvis showing findings consistent with mild acute diverticulitis of the proximal sigmoid colon. No free air, free fluid, abscess or bowel o bstruction. U/S interpreted by me (1pt. min.). @ -None done What testing was considered but not performed or refused? (CT, X-rays, U/S, labs)? Why? @ -None What meds were considered but not given or refused? Why? @ -None Did you discuss the management of the patient with other professionals (prof bernadine i.e. , PA, [employer], lab, RT, psych nurse, social service assistant, communications officer, teacher, booking officer, case mgr)? Give summary @ -No Was smoking cessation discussed for >3mins.? @ -No Was critical care preformed (if so, how long)? @ -No Were there social determinants of health that impacted care today? How? (Homelessness, low income, unemployed, alcoholism, drug addiction, transportation, low edu. Level, literacy, decrease access to med. care, skilled nursing, rehab)? @ -No Was there de-escalation of care discussed even if they declined (Discuss DNR or withdrawal of care, Hospice)? DNR status @ -No What co-morbidities impacted this encounter? (DM, HTN, Smoking, COPD, CAD, Cancer, CVA, ARF, Chemo, Hep., AIDS, mental health diagnosis, sleep apnea, morbid obesity)? @ -None Was patient admitted / discharged? Hospital course, mention meds given and route, prescriptions, significant lab abnormalities, going to OR and other pertinent info. @ -Discharge. 58-year-old female presented to the ER with a chief complaint of abdominal pain. History and physical exam completed. Vitals within normal li mits. Patient in no signs of acute distress and nontoxic-appearing. Exam remarkable for exquisite left lower quadrant abdominal pain tenderness to palpation. Normal bowel sounds with no rebound or guarding. Laboratory studies obtained unremarkable. Urinalysis without evidence of dehydration or infection. CT abdomen pelvis performed showing acute mild diverticulitis of the proximal sigmoid colon. No complicating factors. Patient received symptomatic control in the ER, with improvement. Upon reevaluation, patient resting comfortably in exam room in no signs of acute distress. Results discussed with patient, all questions answered. Patient stable for discharge at this time. Augmentin prescribed. Advise close follow-up with PCP and GI, referral given. Strict return parameters discussed. Patient discharged in stable condition. Patient verbal expressed understanding agree with care plan. Case discussed with ED attending . Undiagnosed new problem with uncertain prognosis? @ -No Drug Therapy requiring intensive monitoring for toxicity (Heparin, Nitro, Insulin, Cardizem)? @ -No Were any procedures done? @ -No Diagnosis/symptom? @ -Diverticulitis Acute, or Chronic, or Acute on Chronic? @ -Acute Uncomplicated (without systemic symptoms) or Complicated (systemic symptoms)? @ -Uncomplicated Side effects of treatment? @ -No Exacerbation, Progression, or Severe Exacerbation? @ -No Poses a threat to life or bodily function? How? (Chest pain, [place], [place], pneumonia, PE, COPD, DKA, ARF, appy, cholecystitis, CVA, Diverticulitis, Homicidal, Suicidal, threat to staff... and all critical care pts) @ -Yes, diverticulitis can lead to sepsis, abscess formation and/or bowel perforation. - Lab Data Result diagrams: 06/14/24 10:54 06/14/24 10:54 Lab Results 06/14/24 06/14/24 06/14/24 Range/Units 10:54 10:54 10:54 WBC 10.4 (3.8-10.6) k/uL RBC 4.73 (3.80-5.40) m/uL Hgb 14.1 (11.4-16.0) gm/dL Hct 42.1 (34.0-46.0) % MCV 89.2 (80.0-100.0) fL MCH 29.8 (25.0-35.0) pg MCHC 33.4 (31.0-37.0) g/dL RDW 13.4 (11.5-15.5) % Plt Count 234 (150-450) k/uL MPV 8.2 Neutrophils % 81 % Lymphocytes % 12 % Monocytes % 4 % Eosinophils % 1 % Basophils % 0 % Neutrophils # 8.5 H (1.3-7.7) k/uL Lymphocytes # 1.3 (1.0-4.8) k/uL Monocytes # 0.4 (0-1.0) k/uL Eosinophils # 0.1 (0-0.7) k/uL Basophils # 0.0 (0-0.2) k/uL Sodium 139 (137-145) mmol/L Potassium 4.4 (3.5-5.1) mmol/L Chloride 105 (98-107) mmol/L Carbon Dioxide 28 (22-30) mmol/L Anion Gap 6 mmol/L BUN 14 (7-17) mg/dL Creatinine 0.80 (0.52-1.04) mg/dL Est GFR (CKD-EPI)AfAm >90 (>60 ml/min/1.73 sqM) Est GFR (CKD-EPI)NonAf 82 (>60 ml/min/1.73 sqM) Glucose 105 H (74-99) mg/dL Plasma Lactic Acid Porfirio 0.9 (0.7-2.0) mmol/L Calcium 9.3 (8.4-10.2) mg/dL Total Bilirubin 0.8 (0.2-1.3) mg/dL AST 20 (14-36) U/L ALT 20 (4-34) U/L Alkaline Phosphatase 78 (38-126) U/L Total Protein 6.8 (6.3-8.2) g/dL Albumin 4.4 (3.5-5.0) g/dL Amylase 50 (30-110) U/L Lipase 55 (23-300) U/L Urine Color Urine Appearance (Clear) Urine pH (5.0-8.0) Ur Specific Sandy (1.001-1.035) Urine Protein (Negative) Urine Glucose (UA) (Negative) Urine Ketones (Negative) Urine Blood (Negative) Urine Nitrite (Negative) Urine Bilirubin (Negative) Urine Urobilinogen (<2.0) mg/dL Ur Leukocyte Esterase (Negative) 06/14/24 Range/Units 11:40 WBC (3.8-10.6) k/uL RBC (3.80-5.40) m/uL Hgb (11.4-16.0) gm/dL Hct (34.0-46.0) % MCV (80.0-100.0) fL MCH (25.0-35.0) pg MCHC (31.0-37.0) g/dL RDW (11.5-15.5) % Plt Count (150-450) k/uL MPV Neutrophils % % Lymphocytes % % Monocytes % % Eosinophils % % Basophils % % Neutrophils # (1.3-7.7) k/uL Lymphocytes # (1.0-4.8) k/uL Monocytes # (0-1.0) k/uL Eosinophils # (0-0.7) k/uL Basophils # (0-0.2) k/uL Sodium (137-145) mmol/L Potassium (3.5-5.1) mmol/L Chloride (98-107) mmol/L Carbon Dioxide (22-30) mmol/L Anion Gap mmol/L BUN (7-17) mg/dL Creatinine (0.52-1.04) mg/dL Est GFR (CKD-EPI)AfAm (>60 ml/min/1.73 sqM) Est GFR (CKD-EPI)NonAf (>60 ml/min/1.73 sqM) Glucose (74-99) mg/dL Plasma Lactic Acid Porfirio (0.7-2.0) mmol/L Calcium (8.4-10.2) mg/dL Total Bilirubin (0.2-1.3) mg/dL AST (14-36) U/L ALT (4-34) U/L Alkaline Phosphatase (38-126) U/L Total Protein (6.3-8.2) g/dL Albumin (3.5-5.0) g/dL Amylase (30-110) U/L Lipase (23-300) U/L Urine Color Light Yellow Urine Appearance Clear (Clear) Urine pH 5.0 (5.0-8.0) Ur Specific Sandy 1.017 (1.001-1.035) Urine Protein Negative (Negative) Urine Glucose (UA) Negative (Negative) Urine Ketones Negative (Negative) Urine Blood Negative (Negative) Urine Nitrite Negative (Negative) Urine Bilirubin Negative (Negative) Urine Urobilinogen <2.0 (<2.0) mg/dL Ur Leukocyte Esterase Negative (Negative) - Radiology Data Radiology results: report reviewed, image reviewed Disposition Clinical Impression: Diverticulitis Disposition: HOME SELF-CARE Condition: Stable Instructions (If sedation given, give patient instructions): Diverticulitis (DC) Additional Instructions: Complete full course of Augmentin. Follow-up with PCP. Return to the ER for any new or worsening concerns. Prescriptions: Amoxic-Pot Clav 875-125Mg [Augmentin 875-125] 1 tab PO Q12HR #20 tab Is patient prescribed a controlled substance at d/c from ED?: No Referrals: Santos Odom DO [Primary Care Provider] - 1-2 days Zaida Ocampo MD [STAFF PHYSICIAN] - 1-2 days Time of Disposition: 12:14
[2024-06-14 11:03] LABS: Basophils % (A) 0 %; Eosinophils # (A) 0.1 k/uL (0-0.7); Eosinophils % (A) 1 %; HCT 42.1 % (34.0-46.0); HGB 14.1 gm/dL (11.4-16.0); Lymphocytes # (A) 1.3 k/uL (1.0-4.8); Lymphocytes % (A) 12 %; MCH 29.8 pg (25.0-35.0); MCHC 33.4 g/dL (31.0-37.0); MCV 89.2 fL (80.0-100.0); Mean Platelet Volume 8.2; Monocytes # (A) 0.4 k/uL (0-1.0); Monocytes % (A) 4 %; Neutrophils # (A) 8.5 k/uL (1.3-7.7); Neutrophils % (A) 81 %; Platelet Count 234 k/uL (150-450); RBC 4.73 m/uL (3.80-5.40); RDW 13.4 % (11.5-15.5); WBC 10.4 k/uL (3.8-10.6)
[2024-06-14 11:14] LABS: ALT 20 U/L (4-34); AST 20 U/L (14-36); African American GFR (CKD) >90 (>60 ml/min/1.73 sqM); Albumin 4.4 g/dL (3.5-5.0); Alkaline Phosphatase 78 U/L (38-126); Amylase 50 U/L (30-110); Anion Gap 6 mmol/L; Blood Urea Nitrogen 14 mg/dL (7-17); Calcium 9.3 mg/dL (8.4-10.2); Carbon Dioxide 28 mmol/L (22-30); Chloride 105 mmol/L (98-107); Glucose 105 mg/dL (74-99); Lipase 55 U/L (23-300); Non-African American GFR(CKD) 82 (>60 ml/min/1.73 sqM); Potassium 4.4 mmol/L (3.5-5.1); Sodium 139 mmol/L (137-145); Total Bilirubin 0.8 mg/dL (0.2-1.3); Total Protein 6.8 g/dL (6.3-8.2)
--- NOTE | 2024-06-14 11:39 | CT ---
EXAMINATION TYPE: CT abdomen pelvis wo con DATE OF EXAM: 06/14/2024 HISTORY: left fank pain CT DLP: 790.4 mGycm. Automated Exposure Control for Dose Reduction was Utilized. TECHNIQUE: CT scan of the abdomen and pelvis is performed without oral or IV contrast. COMPARISON: 12/25/2018 FINDINGS: Within the limitations of a non-contrast study, the following observations are made. The lung bases are clear. Small hiatal hernia. There is surgical absence of the gallbladder. There is no biliary ductal dilatation. There is no organomegaly involving the liver, pancreas, spleen or adrenal glands. There is a 12 mm so mewhat ill-defined low density lesion in the posterior segment of the right lobe liver which was seen previously and is stable. Statistically most likely represents a small cyst or benign hemangioma. There are no renal calcifications or hydronephrosis. There is diverticulosis of sigmoid colon. There is mild edema in the paracolic fat adjacent to the pr oximal sigmoid colon consistent with mild acute diverticulitis. There is no abscess. There is no johanne l obstruction. There is no free intraperitoneal air or fluid. There is no pelvic mass, free fluid, abscess or adenopathy. There is surgical absence of the uterus. The osseous structures are intact. IMPRESSION: Findings consistent with mild acute diverticulitis of the proximal sigmoid colon. No free air, free f luid, bowel obstruction or abscess. [facility], , 06/14/2024 11:37 AM
[2024-06-14 11:50] LABS: Appearance,Urine Clear (Clear); Bilirubin,Urine Negative (Negative); Blood,Urine Negative (Negative); Color,Urine Light Yellow; Glucose,Urine (UA) Negative (Negative); Ketones,Urine Negative (Negative); Leukocyte Esterase,Urine Negative (Negative); Nitrite,Urine Negative (Negative); Protein,Urine Negative (Negative); Specific Gravity,Urine 1.017 (1.001-1.035); Urobilinogen,Urine <2.0 mg/dL (<2.0)
[2024-06-14 13:54] VITALS: BP 136/80; PULSE 79; TEMP 97.6
== END 2024-06-14 14:00 | disposition home or self-care (01) ==
LOC: EC 09:53
CPT/HCPCS: 36415; 74176; 80053; 81003; 82150; 83605; 83690; 85025; 96361; 96374; 96375; 99284